=== PATIENT | male | born 1945 | race Caucasian/White ===

== ENCOUNTER 2016-10-28 14:56 | Inpatient (IN) | payer MEDICARE, OTHER ==
[~2016-10-28] VITALS: Ht 170.2 cm; Wt 83.0 kg
[2016-10-28 15:10] LABS: BASOPHILS % (AUTO) 0.6 % (0.0-2.0); EOSINOPHILS # (AUTO) 0.1 /CMM (0.0-0.7); EOSINOPHILS % (AUTO) 1.2 % (0.0-6.0); HEMATOCRIT 21 % (39-51); LYMPHOCYTES % (AUTO) 24.5 % (20.0-44.0); MEAN CORPUSCULAR HEMOGLOBIN 21 PG (26.0-33.0); MEAN CORPUSCULAR HGB CONC 31 g/dl (31.0-36.0); MEAN CORPUSCULAR VOLUME 66 fL (80-96); MONOCYTES # (AUTO) 0.6 /CMM (0.1-1.30); MONOCYTES % (AUTO) 6.9 % (2.0-12.0); NEUTROPHILS # (AUTO) 5.3 /CMM (1.8-8.9); NEUTROPHILS % (AUTO) 66.8 % (43.0-81.0); PLATELET COUNT (AUTO) 102 /CMM (150-450); RDW COEFFICIENT OF VARIATION 21.1 (11.5-15.0); RED BLOOD CELL COUNT(AUTO) 3.11 MIL/uL (4.5-6.0)
--- NOTE | 2016-10-28 15:10 | NUR ---
PT BIBA FOR INTERMITTENT CHEST PAIN X 3 DAYS, WORSE TODAY. PT AAOX3. COMPLAINS OF LEFT SIDE CHEST PAIN NON-RADIATING. DENIES TRAUMA. SAFETY AND COMFORT MEASURES PROVIDED. WILL MONITOR.
[2016-10-28 15:13] LABS: HEMOGLOBIN 6.4 g/dL (13.5-17.5)
--- NOTE | 2016-10-28 15:13 | NUR ---
CALLED NURSING SUP. FOR TELE BED, SAID SHE WILL CALL ME BACK
[2016-10-28 15:21] LABS: CALCIUM, SERUM 8.8 mg/dL (8.5-10.1); CREATININE 1.5 mg/dL (0.6-1.3); POTASSIUM 3.9 mmol/L (3.5-5.1)
[2016-10-28 15:28] LABS: TROPONIN I 0.201 ng/mL (0.00-0.056)
[2016-10-28 15:34] LABS: D-DIMER 0.35 mg/L(FEU (0.17-0.50); INR 0.93 (0.87-1.13); PROTHROMBIN TIME 9.9 SECS (9.5-12.7)
[2016-10-28] MEDS ORDERED: PANTOPRAZOLE 40 MG VIAL ONE (15:59)
[2016-10-28 16:00] VITALS: BP 126/45
[2016-10-28] MEDS ORDERED: PANTOPRAZOLE 40 MG VIAL IV ONE (16:00)
--- NOTE | 2016-10-28 16:03 | NUR ---
[facility] PAGED, DR.VU CHAMBERLAIN CAREER PROFESSIONAL
[2016-10-28] MEDS ORDERED: ROPI1TAB4 PO (16:23)
[2016-10-28] MEDS ORDERED: CLON0.1T PO (16:23)
[2016-10-28] MEDS ORDERED: VALS1TAB6 PO (16:23)
[2016-10-28] MEDS ORDERED: LINA1TAB7 PO (16:23)
[2016-10-28] MEDS ORDERED: MELO-264 PO (16:23)
[2016-10-28] MEDS ORDERED: ALLO300T2 PO (16:23)
[2016-10-28] MEDS ORDERED: LORA1TAB PO (16:23)
[2016-10-28] MEDS ORDERED: AMYL1CAP58 PO (16:23)
[2016-10-28] MEDS ORDERED: CARV6.252 PO (16:23)
[2016-10-28] MEDS ORDERED: FEBU80TA PO (16:23)
[2016-10-28] MEDS ORDERED: CILO100T PO (16:23)
[2016-10-28] MEDS ORDERED: GABA-534 PO (16:23)
[2016-10-28] MEDS ORDERED: PANT40TA4 PO (16:23)
[2016-10-28] MEDS ORDERED: DAPA5TAB PO (16:23)
[2016-10-28] MEDS ORDERED: VENL37.591 PO (16:23)
[2016-10-28] MEDS ORDERED: ASPI81TA2 PO (16:23)
[2016-10-28] MEDS ORDERED: COLC0.6C3 PO (16:23)
[2016-10-28] MEDS ORDERED: SUVO15TA PO (16:23)
[2016-10-28] MEDS ORDERED: ICOS1CAP PO (16:23)
[2016-10-28] MEDS ORDERED: EZET10TA PO (16:23)
[2016-10-28] MEDS ORDERED: LEVO50TA8 PO (16:23)
[2016-10-28] MEDS ORDERED: FENO160T PO (16:23)
[2016-10-28] MEDS ORDERED: PRAM0.258 PO (16:23)
[2016-10-28] MEDS ORDERED: AMLO5TAB2 PO (16:23)
[2016-10-28] MEDS ORDERED: CARB-93 PO (16:23)
[2016-10-28] MEDS ORDERED: TAMS0.4C34 PO (16:23)
[2016-10-28] MEDS ORDERED: PREG50CA PO (16:23)
--- NOTE | 2016-10-28 16:26 | NUR ---
REPORT GIVEN TO RICHARD CORMIER FOR TELE ROOM 101
[2016-10-28 16:45] VITALS: BP 128/45
--- NOTE | 2016-10-28 16:45 | NUR ---
RN NOTES RECEIVED PT FROM ER , A/Ox4, LEBANESE SPEAKING , RESPIRATION EVEN AND UNLABORED , ON RA , VSS STABLE, BRIDGER ANY CHEST PAIN , ON TELE, SR IN 70'S , SUPPORTIVE FAMILY AT THE BEDSIDE, L HAND IV SITE #20 CDI, PT ORIENTED TO ROOM AND SURROUNDING , SR UP X3, CALL LIGHT WITHIN EASY REACH , PT REFUSED TO HAVE HIS SACRUM AND PERINEAL AREA CHECKED FOR ANY SKIN ISSUES, NO APPARENT SKIN ISSUE NOTED , CONTINUE TO MONITOR PT CLOSELY AND NOTIFY MD FOR ANY SIGNIFICANT CHANGES
[2016-10-28 16:59] LABS: BAND % (MANUAL) 3 % (0.0-5.0); LYMPHOCYTES % (MANUAL) 22 % (16-48); MONOCYTES % (MANUAL) 3 % (0-11.0); NEUTROPHILS % (MANUAL) 72 (42-76)
[2016-10-28] MEDS ORDERED: MAGNESIUM HYDROXIDE 30 ML UDC PO PRN (17:00)
[2016-10-28] MEDS ORDERED: MAG HYDROX/AL HYDROX/SIMETH 30 ML UDC PO PRN (17:00)
[2016-10-28] MEDS ORDERED: ZOLPIDEM TARTRATE 5 MG TABLET PO PRN (17:00)
[2016-10-28] MEDS ORDERED: ONDANSETRON HCL/PF 4 MG/2 ML VIAL IVP PRN (17:00)
[2016-10-28] MEDS ORDERED: HYDROCODONE/APAP 5/325MG 1 EACH TABLET PO PRN (17:00)
[2016-10-28] MEDS ORDERED: Z GUARD REMEDY 2 OZ OINT TP PRN (17:00)
[2016-10-28] MEDS ORDERED: ACETAMINOPHEN 325 MG TABLET PO PRN (17:00)
[2016-10-28 17:01] LABS: ANISOCYTOSIS 2+; PLATELET ESTIMATE DECREASED; TEAR DROP CELLS 1+
[2016-10-28] MEDS ORDERED: CLONIDINE HCL 0.1 MG TABLET PO PRN (17:30)
[2016-10-28] MEDS ORDERED: LORAZEPAM 1 MG TABLET PO PRN (17:30)
[2016-10-28] MEDS ORDERED: IV SET PRIMARY PUMP SET 1 EA INFUS.SET MC ONE (18:35)
[2016-10-28] MEDS: IV NS 0.9% 1,000 ML IV PRN (18:41)
--- NOTE | 2016-10-28 19:08 | NUR ---
RN NOTES PT HAS HX OF THALASSEMIA TRAIT , DR CHAMBERLAIN NOTIFIED
--- NOTE | 2016-10-28 19:30 | NUR ---
GM VIDEO INITIAL NOTE PT RECEIVED RESTING IN BED. A/O X4 SIERRA LEONEAN SPEAKING WITH FAMILY AT BEDSIDE. ON ROOM AIR AND SATING WELL. TELE-SINUS RHYTHM 70'S. IV L HAND#20 WITH FLUIDS RUNNING AND WELL TOLERATED. ALL SAFETY MEASURES IN PLACE. CONSENT SIGNED FOR BLOOD TRANSFUSION D/T LOW H/H. CALL LIGHT WITHIN REACH. WILL CONTINUE TO MONITOR.
[2016-10-28] MEDS ORDERED: IV NS 0.9% 250 ML IV ONE (19:34)
[2016-10-28] MEDS ORDERED: BLOOD IV SET 1 EA INFUS.SET MC ONE (19:34)
[2016-10-28 20:00] VITALS: BP 122/39
[2016-10-28] MEDS ORDERED: DEXTROSE 50%-WATER 50 ML DISP.SYRIN IV PRN (20:00)
[2016-10-28] MEDS ORDERED: *INSULIN REGULAR(HUMULIN R)HUM 100 UNIT/ML VIAL SQ PRN (20:00)
[2016-10-28] MEDS ORDERED: INSULIN REGULAR, HUMAN 100 UNIT/ML 3 ML VIAL SQ PRN (20:00)
[2016-10-28 20:45] VITALS: BP 120/59
[2016-10-28] MEDS: BLOOD SUGAR DIAGNOSTIC 1 EACH STRIP IN SCH (21:38)
[2016-10-28] MEDS: PRAMIPEXOLE DI-HCL 0.25 MG TABLET PO SCH (21:38)
[2016-10-28] MEDS: GABAPENTIN 300 MG CAPSULE PO SCH (21:38)
--- NOTE | 2016-10-28 22:00 | NUR ---
SHOE ASSOCIATE NOTE ACCU CHECK DONE FOR PT. BLOOD SUGAR 163MG/DL. PT AND FAMILY REFUSED INSULIN PER SLIDING SCALE PROTOCOL. STATING 'PT DOES NOT USE INSULIN AT HOME AND DOES NOT WANT IT'. RISKS AND BENEFITS EXPLAINED X'S 3. PT AND FAMILY STILL REFUSED. WILL CONTINUE TO MONITOR.
[2016-10-28 23:58] VITALS: BP 121/76
[2016-10-29] VITALS (16 sets, daily range): BP systolic 96–157; BP diastolic 51–90
--- NOTE | 2016-10-29 05:00 | NUR ---
BIOFUELS PRODUCTION ASSOCIATE NOTE PT C/O CHEST PAIN. O2 CHECKED ON ROOM AIR AT 85% SATURATION.PUT PT ON 5L OF O2 VIA NC INCREASING O2SAT TO 96%. SPOKE WITH POLE INCISOR OPERATOR TO TRANSLATE D/T PT ONLY SPEAKING AUSTRIAN. PT STATED CHEST PAIN OCCURRED WITH EXERTION WHEN USING THE URINAL. PAIN MEDICATION GIVEN WITH PT STATING THE PAIN WAS SUBSIDING. SPOKE WITH RT FOR STAT EKG. WILL CONTINUE TO MONITOR.
[2016-10-29] MEDS: BLOOD SUGAR DIAGNOSTIC 1 EACH STRIP IN SCH ×4 (06:47→22:00)
[2016-10-29] MEDS: LEVOTHYROXINE SODIUM 50 MCG TABLET PO SCH ×2 (06:48→09:31)
[2016-10-29 06:50] LABS: EOSINOPHILS # (AUTO) 0.1 /CMM (0.0-0.7); EOSINOPHILS % (AUTO) 0.7 % (0.0-6.0); HEMATOCRIT 25 % (39-51); HEMOGLOBIN 8.1 g/dL (13.5-17.5); LYMPHOCYTES # (AUTO) 1.9 /CMM (0.8-4.8); LYMPHOCYTES % (AUTO) 18.8 % (20.0-44.0); MEAN CORPUSCULAR HEMOGLOBIN 24 PG (26.0-33.0); MEAN CORPUSCULAR HGB CONC 32 g/dl (31.0-36.0); MEAN CORPUSCULAR VOLUME 73 fL (80-96); MONOCYTES # (AUTO) 0.5 /CMM (0.1-1.30); MONOCYTES % (AUTO) 4.6 % (2.0-12.0); NEUTROPHILS # (AUTO) 7.5 /CMM (1.8-8.9); NEUTROPHILS % (AUTO) 75.9 % (43.0-81.0); PLATELET COUNT (AUTO) 92 /CMM (150-450); RED BLOOD CELL COUNT(AUTO) 3.47 MIL/uL (4.5-6.0); WHITE BLOOD COUNT (AUTO) 9.9 K/uL (4.3-11.0)
--- NOTE | 2016-10-29 07:00 | NUR ---
JACK SETTER CLOSING NOTE PT RESTING IN BED. PT MONITORED DURING SHIFT. BLOOD TRANSFUSION PERFORMED WITHOUT REACTION AND WELL TOLERATED. PT MADE COMFORTABLE AND ALL SAFETY MEASURES IN PLACE. CALL LIGHT WITHIN REACH AT ALL TIMES. WILL ENDORSE TO NEXT SHIFT FOR ROXANNA.
[2016-10-29 07:13] LABS: CALCIUM, SERUM 8.2 mg/dL (8.5-10.1); CREATININE 1.4 mg/dL (0.6-1.3); MAGNESIUM 1.7 mg/dL (1.8-2.4); PHOSPHORUS 4.2 mg/dL (2.5-4.9)
--- NOTE | 2016-10-29 07:15 | NUR ---
RN INITIAL NOTES: Rec'd pt awake on bed, A/Ox3-4, not in any distress, Upper Sorbian speaking. On telemonitor, SR w/ 1` AVB, HR 70 bpm. Pt has L hand G20 PL, patent and intact w/ NS at 75 cc/hr infusing well, no signs of infection/ infiltration noted. Provided comfort & safety measures. Call light placed w/in reached. Bed kept low in locked position. Will continue to monitor.
--- NOTE | 2016-10-29 08:30 | NUR ---
RN NOTES: Pt seen & examined by Dr. Cuadra w/ orders & carried out. Consent done for EGD procedure tomorrow. Instructed pt re: NPO post midnight (translated by Tawnya). Pt verbalized understanding.
[2016-10-29] MEDS ORDERED: HYDROCHLOROTHIAZIDE 25 MG TABLET PO SCH (09:00)
[2016-10-29] MEDS: PANTOPRAZOLE 40 MG VIAL IV SCH (09:28)
[2016-10-29] MEDS: CILOSTAZOL 100 MG TABLET PO SCH ×2 (09:29→16:46)
[2016-10-29] MEDS: PREGABALIN 25 MG CAPSULE PO SCH (09:30)
[2016-10-29] MEDS: CARBIDOPA/LEVODOPA 25/100 MG 1 UDTAB PO SCH ×2 (09:31→16:46)
[2016-10-29] MEDS: COLCHICINE 0.6 MG TABLET PO SCH (09:32)
[2016-10-29] MEDS: VENLAFAXINE XR 37.5 MG CAP.SR.24H PO SCH (09:32)
[2016-10-29] MEDS: EZETIMIBE 10 MG TABLET PO SCH (09:33)
[2016-10-29] MEDS: TAMSULOSIN 0.4 MG CAP.SR.24H PO SCH (09:33)
[2016-10-29] MEDS: CARVEDILOL 6.25 MG TABLET PO SCH ×2 (09:38→16:47)
[2016-10-29] MEDS: AMLODIPINE BESYLATE 5 MG TABLET PO SCH ×2 (09:38→16:46)
[2016-10-29] MEDS: ropiniROLE 0.5 MG TABLET PO SCH (09:44)
[2016-10-29 09:46] LABS: BAND % (MANUAL) 1 % (0.0-5.0); EOSINOPHILS % (MANUAL) 1 % (0-4); LYMPHOCYTES % (MANUAL) 17 % (16-48); MONOCYTES % (MANUAL) 3 % (0-11.0); NEUTROPHILS % (MANUAL) 78 (42-76)
[2016-10-29 09:47] LABS: ANISOCYTOSIS 1+; HYPOCHROMASIA 1+; PLATELET ESTIMATE DECREASED
[2016-10-29] MEDS: LIPASE/PROTEASE/AMYLASE 1 EACH CAPSULE.DR PO SCH ×3 (11:16→18:22)
--- NOTE | 2016-10-29 12:00 | NUR ---
RN NOTES: Accucheck 158 mg/dL, pt refused insulin. Risk & benefits explained but pt still refuses it. (w/ pathology supervisor Tawnya)
--- NOTE | 2016-10-29 12:30 | NUR ---
RN NOTES: Pt seen & examined by Dr. Thomas w/ orders & carried out.
[2016-10-29] MEDS: VALSARTAN 80 MG TABLET PO SCH (12:46)
[2016-10-29] MEDS ORDERED: SECONDARY IV SET 1 EA INFUS.SET MC ONE (13:11)
[2016-10-29] MEDS: Magnesium 1GM/D5W 100ML PREMIX 100 ML IV SCH ×2 (13:15→14:28)
[2016-10-29] MEDS ORDERED: IV NS 0.9% 250 ML IV ONE ×2 (15:27→20:56)
[2016-10-29] MEDS ORDERED: BLOOD IV SET 1 EA INFUS.SET MC ONE ×2 (15:28→20:56)
--- NOTE | 2016-10-29 16:30 | NUR ---
RN NOTES: Pt started on blood transfusion of PRBC (1st unit). VS monitored every q15 mins and watch out for any blood transfusion reaction. Family at bedside. Instructed to inform the RN PILAR if there is any SOB, chills, fever, or pruritus. Pt and family verbalized understanding.
[2016-10-29] MEDS: DAPAGLIFLOZIN PROPANEDIOL 5 MG PO SCH (16:45)
[2016-10-29] MEDS: METFORMIN HCL PO SCH (16:45)
[2016-10-29] MEDS: LINAGLIPTIN PO SCH (16:45)
[2016-10-29] MEDS: FENOFIBRATE 160 MG PO SCH (16:45)
[2016-10-29] MEDS ORDERED: diphenhydrAMINE HCL 50 MG CAPSULE PO PRN (17:30)
--- NOTE | 2016-10-29 17:30 | NUR ---
RN NOTES: Pt c/o mild chills and tremors on hands as per family. Blood transfusion immediately stopped. VS checked. Dr. Moss made aware w/ orders to give Benadryl and still continue blood transfusion.
--- NOTE | 2016-10-29 19:00 | NUR ---
RN CLOSING NOTES: No acute changes noted w/in shift. 1 out 2 units of PRBC transfused, pt tolerated well. No further blood transfusion reaction noted. VS stable. Pt A/Ox3-4, not in any distress, denies chest pain, no SOB noted. L hand G20 IV line, patent, clean, dry & intact w/ no signs of infection/ infiltration noted. Kept well rested and comfortable. Reiterated to pt & family NPO post midnight, verbalized understanding. Instructed to call RN for bowel movement (need stool sample for occult blood). Call light placed w/in reached. Bed kept low in locked position. Pt is for BT of 2nd unit PRBC. Endorsed to Brenna.
--- NOTE | 2016-10-29 19:30 | NUR ---
FISH PACKER INITIAL NOTE PT RECEIVED SITTING UP IN BED WITH FAMILY AT BEDSIDE. A/O X3-4, FIJIAN SPEAKING. ON 2L OF O2 VIA NC AND SATING WELL. NO C/O OF CHEST PAIN OR SOB NOTED AT THIS TIME. IV SITE L HAND INTACT, CLEAN AND FLUIDS WELL TOLERATED. TELE- SINUS RHYTHM 70'S W BORDERLINE 1 DEGREE BLOCK. CALL LIGHT WITHIN EASY REACH AT ALL TIMES. INSTRUCTED TO INFORM NURSE OF BOWEL MOVEMENT BECAUSE IT NEEDS TO BE COLLECTED FOR STOOL OCCULT BLOOD. ALSO INFORMED PT OF 2ND UNIT OF BLOOD THAT NEEDS TO BE TRANSFUSED. WILL CONTINUE TO MONITOR.
[2016-10-29] MEDS: PRAMIPEXOLE DI-HCL 0.25 MG TABLET PO SCH (21:38)
[2016-10-29] MEDS: GABAPENTIN 300 MG CAPSULE PO SCH (21:38)
--- NOTE | 2016-10-29 22:30 | NUR ---
RURAL ELECTRIFICATION ENGINEER NOTE PT AND FAMILY REFUSED BLOOD SUGAR CHECK. EXPLAINED RISKS AND BENEFITS X'S 3 AND THEY STILL REFUSED. STATING PT DOES NOT NEED TO BE CHECKED. WILL CONTINUE TO MONITOR.
[2016-10-30] VITALS (12 sets, daily range): BP systolic 99–138; BP diastolic 46–75
[2016-10-30] MEDS: IV NS 0.9% 1,000 ML IV PRN (00:32)
[2016-10-30 06:41] LABS: BASOPHILS % (AUTO) 0.3 % (0.0-2.0); EOSINOPHILS # (AUTO) 0.1 /CMM (0.0-0.7); EOSINOPHILS % (AUTO) 0.8 % (0.0-6.0); HEMATOCRIT 28 % (39-51); HEMOGLOBIN 9.1 g/dL (13.5-17.5); LYMPHOCYTES # (AUTO) 1.6 /CMM (0.8-4.8); LYMPHOCYTES % (AUTO) 19.2 % (20.0-44.0); MEAN CORPUSCULAR HEMOGLOBIN 25 PG (26.0-33.0); MEAN CORPUSCULAR HGB CONC 33 g/dl (31.0-36.0); MEAN CORPUSCULAR VOLUME 75 fL (80-96); MONOCYTES # (AUTO) 0.6 /CMM (0.1-1.30); MONOCYTES % (AUTO) 6.8 % (2.0-12.0); NEUTROPHILS # (AUTO) 6.1 /CMM (1.8-8.9); NEUTROPHILS % (AUTO) 72.9 % (43.0-81.0); PLATELET COUNT (AUTO) 112 /CMM (150-450); RDW COEFFICIENT OF VARIATION 26.6 (11.5-15.0); RED BLOOD CELL COUNT(AUTO) 3.71 MIL/uL (4.5-6.0); WHITE BLOOD COUNT (AUTO) 8.3 K/uL (4.3-11.0)
--- NOTE | 2016-10-30 06:45 | NUR ---
OTOLARYNGOLOGY REP CLOSING NOTE PT REMAINED STABLE DURING SHIFT. PT REFUSED ACCU CHECK THIS MORNING. EXPLAINED RISKS AND BENEFITS X'3. PT STILL REFUSED. NO SOB NOTED AND NO C/O PAIN AT THIS TIME. WILL ENDORSE TO NEXT SHIFT FOR ROXANNA.
[2016-10-30 06:59] LABS: TROPONIN I 0.158 ng/mL (0.00-0.056)
[2016-10-30 07:00] LABS: CALCIUM, SERUM 7.9 mg/dL (8.5-10.1); CREATININE 1.4 mg/dL (0.6-1.3)
[2016-10-30] MEDS: LIPASE/PROTEASE/AMYLASE 1 EACH CAPSULE.DR PO SCH ×3 (08:00→17:40)
--- NOTE | 2016-10-30 08:37 | NUR ---
TEL NURSE , patient received in bed skin w/d color good resp unlabored no sob noted patient has been npo aftermidnight for EGD, plan of care and safety discussed and verbalized understanding patient encouraged use of call light to make all needs known will continue to assess and evaluate, call light with in reach
[2016-10-30] MEDS: CARBIDOPA/LEVODOPA 25/100 MG 1 UDTAB PO SCH ×2 (09:00→16:11)
[2016-10-30] MEDS: TAMSULOSIN 0.4 MG CAP.SR.24H PO SCH (09:00)
[2016-10-30] MEDS: VALSARTAN 80 MG TABLET PO SCH (09:00)
[2016-10-30] MEDS: DAPAGLIFLOZIN PROPANEDIOL 5 MG PO SCH (09:00)
[2016-10-30] MEDS: LINAGLIPTIN PO SCH ×2 (09:00→16:11)
[2016-10-30] MEDS: VENLAFAXINE XR 37.5 MG CAP.SR.24H PO SCH (09:00)
[2016-10-30] MEDS: FENOFIBRATE 160 MG PO SCH (09:00)
[2016-10-30] MEDS: AMLODIPINE BESYLATE 5 MG TABLET PO SCH ×2 (09:00→16:12)
[2016-10-30] MEDS: METFORMIN HCL PO SCH ×2 (09:00→16:11)
[2016-10-30] MEDS: PREGABALIN 25 MG CAPSULE PO SCH (09:00)
[2016-10-30] MEDS: ropiniROLE 0.5 MG TABLET PO SCH (09:00)
[2016-10-30] MEDS: COLCHICINE 0.6 MG TABLET PO SCH (09:00)
[2016-10-30] MEDS: EZETIMIBE 10 MG TABLET PO SCH (09:00)
[2016-10-30] MEDS: CARVEDILOL 6.25 MG TABLET PO SCH ×2 (09:00→16:12)
[2016-10-30] MEDS: CILOSTAZOL 100 MG TABLET PO SCH ×2 (09:00→16:11)
[2016-10-30 09:42] LABS: ANISOCYTOSIS 3+; HYPOCHROMASIA 1+
[2016-10-30 09:43] LABS: PLATELET ESTIMATE LARGE PLATELET SEEN
[2016-10-30] MEDS: PANTOPRAZOLE 40 MG VIAL IV SCH (10:28)
[2016-10-30] MEDS: BLOOD SUGAR DIAGNOSTIC 1 EACH STRIP IN SCH ×4 (10:40→21:41)
--- NOTE | 2016-10-30 12:03 | NUR ---
COMPOSITE WORKER ACC NOT DONE PT REFUSED ACC DONE AT 1030AM BS 125
--- NOTE | 2016-10-30 12:26 | NUR ---
TEL NURSE, I UNITS OF PRBC ORDERED PER SURGERY REQUESTED was notified patienthgb 9.1 today will continue to assess and evaluate at bed side , call light with in reach
--- NOTE | 2016-10-30 12:30 | NUR ---
TEL NURSE , reports given to [facility] icu nurse for follow up check
[2016-10-30] MEDS ORDERED: BLOOD IV SET 1 EA INFUS.SET MC ONE (12:32)
[2016-10-30] MEDS ORDERED: IV NS 0.9% 250 ML IV ONE (12:32)
--- NOTE | 2016-10-30 13:15 | NUR ---
field artillery radar operator, PRBC started with vitals temp, b/p 121/57 temp 98.2f pulse 66 at bed side,
--- NOTE | 2016-10-30 13:39 | NUR ---
vitals taken and recorded no signs of reaction noted vitals temp.98.2f pulse 66 resp 16 b/p 121/57 will continue to assess and evaluate,call light with in reach
--- NOTE | 2016-10-30 14:30 | NUR ---
TEL NURSE ,patient to OR for EGD per bed
--- NOTE | 2016-10-30 16:00 | NUR ---
TEL NURSE, patient back to bed and made patient comfortable
--- NOTE | 2016-10-30 17:00 | NUR ---
MED/SURG nurse ,telemetry discontinued per vp project
[2016-10-30] MEDS ORDERED: ANESTHESIA TRAY IN PYXIS 1 EA TRAY MC ONE (18:25)
--- NOTE | 2016-10-30 18:30 | NUR ---
MED/SURG nurse ,condition unchanged from previous assessment will continue to assess and evaluate family at bed side call light with in reach
--- NOTE | 2016-10-30 19:30 | NUR ---
MS RN INITIAL NOTE PT RECEIVED IN BED WITH AT BEDSIDE. A/O X3 AND JAPANESE SPEAKING. ON 2L OF O2 VIA NC AND SATING WELL. NO S/SX OF SOB. NO C/O PAIN NOTED. IV SITE FLUSHING WELL AND INTACT. INSTRUCTED PT TO DRINK TO GOLYTELY STARTING AT 2000 IN PREPARATION FOR COLONOSCOPY IN THE AM. PT VERBALIZED UNDERSTANDING. ALL SAFETY MEASURES IN PLACE. WILL CONTINUE TO MONITOR.
[2016-10-30] MEDS ORDERED: PEG 3350/NA SULF,BICARB,CL/KCL 4,000 ML BOTTLE PO ONE (20:00)
[2016-10-30] MEDS: PRAMIPEXOLE DI-HCL 0.25 MG TABLET PO SCH (21:40)
[2016-10-30] MEDS: GABAPENTIN 300 MG CAPSULE PO SCH (21:40)
[2016-10-31] MEDS: IV NS 0.9% 1,000 ML IV PRN (04:35)
[2016-10-31 06:00] VITALS: BP 141/57
[2016-10-31] MEDS: BLOOD SUGAR DIAGNOSTIC 1 EACH STRIP IN SCH ×4 (06:46→21:44)
--- NOTE | 2016-10-31 06:52 | NUR ---
MS RN CLOSING NOTE PT REMAINED STABLE DURING SHIFT. GOLYTELY FINISHED DURING SHIFT. ALL SAFETY MEASURES IN PLACE. CALL LIGHT WITHIN EASY REACH AT ALL TIMES. WILL ENDORSE TO NEXT SHIFT FOR ROXANNA.
[2016-10-31 06:59] LABS: EOSINOPHILS % (AUTO) 0.2 % (0.0-6.0); HEMATOCRIT 32 % (39-51); HEMOGLOBIN 10.5 g/dL (13.5-17.5); LYMPHOCYTES # (AUTO) 1.3 /CMM (0.8-4.8); LYMPHOCYTES % (AUTO) 15.1 % (20.0-44.0); MEAN CORPUSCULAR HEMOGLOBIN 25 PG (26.0-33.0); MEAN CORPUSCULAR HGB CONC 33 g/dl (31.0-36.0); MEAN CORPUSCULAR VOLUME 76 fL (80-96); MONOCYTES # (AUTO) 0.6 /CMM (0.1-1.30); MONOCYTES % (AUTO) 6.8 % (2.0-12.0); NEUTROPHILS # (AUTO) 6.5 /CMM (1.8-8.9); NEUTROPHILS % (AUTO) 77.9 % (43.0-81.0); PLATELET COUNT (AUTO) 96 /CMM (150-450); RDW COEFFICIENT OF VARIATION 26.6 (11.5-15.0); RED BLOOD CELL COUNT(AUTO) 4.19 MIL/uL (4.5-6.0); WHITE BLOOD COUNT (AUTO) 8.3 K/uL (4.3-11.0)
[2016-10-31 07:06] LABS: CREATININE 1.3 mg/dL (0.6-1.3); POTASSIUM 3.9 mmol/L (3.5-5.1)
[2016-10-31 08:00] VITALS: BP 145/64
--- NOTE | 2016-10-31 08:00 | NUR ---
MS1/RN AM SHIFT INITIAL NOTES RECEIVED PT AWAKE SITTING IN BED, PT ON ROOM AIR SATURATING @ 90%, LUNG SOUNDS CLEAR. A/O X 3 SPEAKS SPANISH ONLY, DENIES CHEST PAIN, NO ACUTE CHANGE OF CONDITION NOTED. PT ON NPO STATUS EXCEPT MEDS FOR SCHEDULED COLONOSCOPY @ 0900. ON GOING IV INFUSION OF NS @ 75CC/HR, IV SITE PATENT WITH NO S/S OF INFECTION. SCHEDULED AM MEDS TO BE GIVEN. CL WITHIN REACHED AND SAFETY MAINTAINED. ON GOING MONITORING.
[2016-10-31 08:16] LABS: TROPONIN I 0.108 ng/mL (0.00-0.056)
[2016-10-31] MEDS: METFORMIN HCL PO SCH ×2 (08:27→17:12)
[2016-10-31] MEDS: DAPAGLIFLOZIN PROPANEDIOL 5 MG PO SCH (08:27)
[2016-10-31] MEDS: FENOFIBRATE 160 MG PO SCH (08:27)
[2016-10-31] MEDS: LINAGLIPTIN PO SCH ×2 (08:27→17:12)
[2016-10-31] MEDS: ropiniROLE 0.5 MG TABLET PO SCH (08:28)
[2016-10-31] MEDS: LEVOTHYROXINE SODIUM 50 MCG TABLET PO SCH (08:28)
[2016-10-31] MEDS: PREGABALIN 25 MG CAPSULE PO SCH (08:29)
[2016-10-31] MEDS: VALSARTAN 80 MG TABLET PO SCH (08:29)
[2016-10-31] MEDS: EZETIMIBE 10 MG TABLET PO SCH (08:29)
[2016-10-31] MEDS: TAMSULOSIN 0.4 MG CAP.SR.24H PO SCH (08:29)
[2016-10-31] MEDS: CILOSTAZOL 100 MG TABLET PO SCH ×2 (08:29→17:12)
[2016-10-31] MEDS: LIPASE/PROTEASE/AMYLASE 1 EACH CAPSULE.DR PO SCH ×3 (08:29→17:12)
[2016-10-31] MEDS: VENLAFAXINE XR 37.5 MG CAP.SR.24H PO SCH (08:29)
[2016-10-31] MEDS: COLCHICINE 0.6 MG TABLET PO SCH (08:29)
[2016-10-31] MEDS: CARBIDOPA/LEVODOPA 25/100 MG 1 UDTAB PO SCH ×2 (08:29→17:12)
[2016-10-31] MEDS: AMLODIPINE BESYLATE 5 MG TABLET PO SCH ×2 (08:30→17:13)
[2016-10-31] MEDS: PANTOPRAZOLE 40 MG VIAL IV SCH (08:30)
[2016-10-31] MEDS: CARVEDILOL 6.25 MG TABLET PO SCH ×2 (08:30→17:13)
--- NOTE | 2016-10-31 08:30 | NUR ---
MS1/RN OFF TO OR - COLONOSCOPY PT LEFT MS1 UNIT VIA BED FOR COLONOSCOPY TO BE PERFORMED BY DR. ALMANZA IN STABLE CONDITION.
[2016-10-31 09:49] LABS: BAND % (MANUAL) 1 % (0.0-5.0); EOSINOPHILS % (MANUAL) 2 % (0-4); HYPOCHROMASIA 2+; LYMPHOCYTES % (MANUAL) 11 % (16-48); MONOCYTES % (MANUAL) 1 % (0-11.0); NEUTROPHILS % (MANUAL) 85 (42-76); PLATELET ESTIMATE DECREASED
[2016-10-31 09:50] LABS: ANISOCYTOSIS 3+
--- NOTE | 2016-10-31 09:50 | NUR ---
MS1/RN BACK TO FLOOR PT RETURNED TO MS1 UNIT VIA BED POST COLOSCOPY IN STABLE CONDITION. PER OR NURSE, REMOVED 2 POLYPS SENT TO PATHOLOGY. IV INFUSION RESUMED. ON GOING MONITORING.
--- NOTE | 2016-10-31 13:51 | NUR ---
MS1/RN PHYSICAL THERAPY PT SEEN BY PHYSICAL THERAPIST, PT ABLE TO WALK 300 FEET, STEADY, NEED SUPERVISION.
[2016-10-31 16:00] VITALS: BP 131/60
[2016-10-31] MEDS: Icosapent Ethyl (Vascepa) 1 GM PO SCH (17:12)
--- NOTE | 2016-10-31 19:41 | NUR ---
MS1/RN AM SHIFT END NOTES ALL NEEDS PROVIDED. NO ACUTE CHANGE OF CONDITION NOTED DURING THE SHIFT. PT ENDORSED TO PM NURSE TO CONTINUE CARE. CL WITHIN REACHED AND SAFETY MAINTAINED.
[2016-10-31 20:00] VITALS: BP 143/60
--- NOTE | 2016-10-31 20:00 | NUR ---
RN INITIAL NOTE; PT ON THE BED RESTING WITHOUT ANY DISTRESS , FAMILY AT THE BED SITE. A/O X 3 ,HUNGARIAN SPEAKING. BREATHING EVEN AND UNLABORED ON ROOM AIR , PERIPHERAL IV ON LH 20 G INTACT AND PATENT . DENIED ANY PAIN AT THIS TIME . CONTINENT TO BOWEL/BLADDER, BED IN THE LOWEST/LOCKED POSITION , CALL LIGHT WITHIN REACH. SAFETY MEASURES APPLIED . WILL CONTINUE OT MONITOR .
[2016-10-31] MEDS: PRAMIPEXOLE DI-HCL 0.25 MG TABLET PO SCH (21:40)
[2016-10-31] MEDS: GABAPENTIN 300 MG CAPSULE PO SCH (21:41)
[2016-11-01 04:00] VITALS: BP 133/56
[2016-11-01] MEDS: BLOOD SUGAR DIAGNOSTIC 1 EACH STRIP IN SCH (06:26)
--- NOTE | 2016-11-01 07:00 | NUR ---
RN NOTE; RECEIVED PT SITTING ON A CHAIR , A/Ox4,BELIZEAN SPEAKING.RESPIRATION EVEN AND UNLABORED, ON RA , NO SOB NOTED, LH 20 G INTACT AND PATENT . DENIED ANY PAIN AT THIS TIME . CONTINENT TO BOWEL/BLADDER, BED IN LOWEST AND LOCKED POSITION , CALL LIGHT WITHIN REACH. SR UP x3, SAFETY MEASURES APPLIED . WILL CONTINUE OT MONITOR PT CLSOELY AND NOTIFY MD FOR ANY SIGNIFICANT CHANGES
--- NOTE | 2016-11-01 07:09 | NUR ---
RN EOS NOTE; PT REMAINED STABLE DURING THE SHIFT, NO ANY DISTRESS NOTED. IV SITE INTACT AND PATENT . KEPT CLEAN AND DRY .ALL NEEDS ATTENDED PROMPTLY. CALL LIGHT WITHIN REACH. ENDORSED TO NEXT SHIFT RN FOR CONTINUITY OF CARE.
[2016-11-01 07:27] LABS: BASOPHILS % (AUTO) 0.4 % (0.0-2.0); EOSINOPHILS # (AUTO) 0.1 /CMM (0.0-0.7); EOSINOPHILS % (AUTO) 1.2 % (0.0-6.0); HEMATOCRIT 32 % (39-51); HEMOGLOBIN 10.2 g/dL (13.5-17.5); LYMPHOCYTES # (AUTO) 1.3 /CMM (0.8-4.8); MEAN CORPUSCULAR HEMOGLOBIN 25 PG (26.0-33.0); MEAN CORPUSCULAR HGB CONC 33 g/dl (31.0-36.0); MEAN CORPUSCULAR VOLUME 76 fL (80-96); MONOCYTES # (AUTO) 0.6 /CMM (0.1-1.30); MONOCYTES % (AUTO) 8.8 % (2.0-12.0); NEUTROPHILS # (AUTO) 4.5 /CMM (1.8-8.9); NEUTROPHILS % (AUTO) 69.6 % (43.0-81.0); PLATELET COUNT (AUTO) 122 /CMM (150-450); RDW COEFFICIENT OF VARIATION 26.9 (11.5-15.0); RED BLOOD CELL COUNT(AUTO) 4.15 MIL/uL (4.5-6.0); WHITE BLOOD COUNT (AUTO) 6.5 K/uL (4.3-11.0)
[2016-11-01 07:45] LABS: CREATININE 1.3 mg/dL (0.6-1.3); POTASSIUM 3.7 mmol/L (3.5-5.1)
[2016-11-01 08:00] VITALS: BP 137/61
[2016-11-01] MEDS: LIPASE/PROTEASE/AMYLASE 1 EACH CAPSULE.DR PO SCH (08:16)
[2016-11-01] MEDS: VENLAFAXINE XR 37.5 MG CAP.SR.24H PO SCH (08:17)
[2016-11-01] MEDS: VALSARTAN 80 MG TABLET PO SCH (08:17)
[2016-11-01] MEDS: LEVOTHYROXINE SODIUM 50 MCG TABLET PO SCH (08:17)
[2016-11-01] MEDS: PREGABALIN 25 MG CAPSULE PO SCH (08:17)
[2016-11-01] MEDS: ropiniROLE 0.5 MG TABLET PO SCH (08:17)
[2016-11-01] MEDS: TAMSULOSIN 0.4 MG CAP.SR.24H PO SCH (08:17)
[2016-11-01] MEDS: EZETIMIBE 10 MG TABLET PO SCH (08:17)
[2016-11-01] MEDS: COLCHICINE 0.6 MG TABLET PO SCH (08:17)
[2016-11-01] MEDS: AMLODIPINE BESYLATE 5 MG TABLET PO SCH (08:17)
[2016-11-01] MEDS: CILOSTAZOL 100 MG TABLET PO SCH (08:17)
[2016-11-01 08:18] VITALS: BP 137/61
[2016-11-01] MEDS: PANTOPRAZOLE 40 MG VIAL IV SCH (08:18)
[2016-11-01] MEDS: CARVEDILOL 6.25 MG TABLET PO SCH (08:18)
[2016-11-01] MEDS: CARBIDOPA/LEVODOPA 25/100 MG 1 UDTAB PO SCH (08:18)
[2016-11-01] MEDS: DAPAGLIFLOZIN PROPANEDIOL 5 MG PO SCH (08:19)
[2016-11-01] MEDS: LINAGLIPTIN PO SCH (08:20)
[2016-11-01] MEDS: METFORMIN HCL PO SCH (08:20)
[2016-11-01] MEDS: Icosapent Ethyl (Vascepa) 1 GM PO SCH (08:20)
[2016-11-01] MEDS: FENOFIBRATE 160 MG PO SCH (08:20)
--- NOTE | 2016-11-01 11:00 | NUR ---
RN NOTES DISCHARGE INSTRUCTION GIVEN TO PT AND HIS FAMILY, VERBALIZED UNDERSTANDING , H/L DISCONTINUED BELONGING FORM SIGNED , NO SKIN ISSUES NOTED , PT LEFT THE FLOOR AMBULATORY ACCOMPANIED BY STAFF MEMBERS IN STABLE CONDITIONS
== END 2016-11-01 12:33 | disposition home or self-care (01) | DRG 377 ==
LOC: ER 14:58 → TELE1 17:08 → MEDSG1 10-30 15:44
PROVIDERS: ADMIT Family Medicine; ATTEND Family Medicine
PROC: 0DBK8ZX Excision of Ascending Colon, Via Natural or Artificial Opening Endoscopic, Diagnostic (ICD-10-PCS; 2016-10-30)
PROC: 30233N1 Transfusion of Nonautologous Red Blood Cells into Peripheral Vein, Percutaneous Approach (ICD-10-PCS; 2016-10-30)
PROC: 0DJ08ZZ Inspection of Upper Intestinal Tract, Via Natural or Artificial Opening Endoscopic (ICD-10-PCS; principal; 2016-10-30 14:00)
PROC: 0DBN8ZX Excision of Sigmoid Colon, Via Natural or Artificial Opening Endoscopic, Diagnostic (ICD-10-PCS; 2016-10-31)
DX: K92.2 Gastrointestinal hemorrhage, unspecified (principal); I21.4 Non-ST elevation (NSTEMI) myocardial infarction; N17.9 Acute kidney failure, unspecified; E03.9 Hypothyroidism, unspecified; E11.9 Type 2 diabetes mellitus without complications; I25.10 Atherosclerotic heart disease of native coronary artery without angina pectoris; Z86.73 Personal history of transient ischemic attack (TIA), and cerebral infarction without residual deficits; F41.8 Other specified anxiety disorders; I10 Essential (primary) hypertension; M10.9 Gout, unspecified; F17.210 Nicotine dependence, cigarettes, uncomplicated; K64.8 Other hemorrhoids; I99.8 Other disorder of circulatory system; D12.2 Benign neoplasm of ascending colon; D50.0 Iron deficiency anemia secondary to blood loss (chronic); E86.9 Volume depletion, unspecified
CPT/HCPCS: 36415; 71010-TC; 80048-TC; 82272-TC; 82962-TC; 83735-TC; 83880; 84100-TC; 84484-TC; 85025-TC; 85378-TC; 85730-TC; 86850-TC; 86921-TC; 87081-TC; 88305-TC; 93307-TC; 97001-TC; 97116-TC; 97530-TC; A4606; C9113; J1815; J2001; J2704; J3475; J7030; J7050; P9016-BL; Q0163; Z7610